=== PATIENT | female | born 1945 | race Two or more races ===

== ENCOUNTER 2016-09-03 05:16 | Inpatient (IN) | payer OTHER, MEDICARE ==
[~2016-09-03] VITALS: Ht 170.2 cm; Wt 121.1 kg
[2016-09-03] MEDS ORDERED: NEEDLELESS EST SET LARGE BORE 1 EA INFUS.SET MC ONE (07:55)
[2016-09-03] MEDS ORDERED: IV SET PRIMARY 1 EA INFUS.SET MC ONE (07:55)
[2016-09-03] MEDS ORDERED: IV LR 1000 ML 1,000 ML ONE (07:55)
[2016-09-03] MEDS ORDERED: SECONDARY IV SET 1 EA INFUS.SET MC ONE ×2 (07:55→17:27)
[2016-09-03] MEDS ORDERED: CEFAZOLIN SODIUM/DEXTROSE,ISO 50 ML IV ONE (07:55)
[2016-09-03] MEDS ORDERED: KETOROLAC TROMETHAMINE INJ 30 MG/ML VIAL ONE (08:10)
[2016-09-03] MEDS ORDERED: BACITRACIN 50000 UNITS/VIAL ONE (08:10)
[2016-09-03] MEDS ORDERED: BUPIVACAINE MPF 0.5% W/EPI INJ 30 ML VIAL ONE (08:10)
[2016-09-03] MEDS ORDERED: ROCURONIUM BROMIDE 50 MG/5 ML ONE (08:21)
[2016-09-03] MEDS ORDERED: FENTANYL PF 100MCG/2ML AMPUL ONE (08:21)
[2016-09-03] MEDS ORDERED: TRANEXAMIC ACID 3,000 MG in SODIUM CHLORIDE IRRIG SOLUTION 70 ML IR ONE (08:30)
[2016-09-03] MEDS ORDERED: HYDROMORPHONE 1 MG/1 ML DISP.SYRIN ONE (10:21)
[2016-09-03 11:30] VITALS: BP 120/63
[2016-09-03 12:00] VITALS: BP 120/63
[2016-09-03] MEDS ORDERED: ZOFRAN 4mg/2ML IV PRN (12:00)
[2016-09-03] MEDS ORDERED: TYLENOL 650 MG TABLET PO PRN (12:00)
[2016-09-03] MEDS ORDERED: COLACE 250 MG CAPSULE PO PRN (12:00)
[2016-09-03] MEDS ORDERED: SENOKOT 8.6 MG TABLET PO PRN (12:00)
[2016-09-03] MEDS ORDERED: IV LR 1000 ML 1,000 ML IV PRN (12:00)
[2016-09-03] MEDS ORDERED: HYDROCODONE/APAP 5/325MG 1 EACH TABLET PO PRN (12:00)
[2016-09-03] MEDS ORDERED: DULCOLAX 10 MG/SUPP.RECT RC PRN (12:00)
[2016-09-03] MEDS ORDERED: IV SET PRIMARY PUMP SET 1 EA INFUS.SET MC ONE (12:31)
[2016-09-03] MEDS ORDERED: HYDR-3205 PO (15:05)
[2016-09-03] MEDS ORDERED: RIVA10TA PO (15:05)
[2016-09-03] MEDS ORDERED: MELO-264 PO (15:05)
[2016-09-03] MEDS ORDERED: VALS160T24 PO (15:05)
[2016-09-03] MEDS ORDERED: ESCI10TA PO (15:05)
[2016-09-03] MEDS ORDERED: POTA10CA68 PO (15:05)
[2016-09-03] MEDS ORDERED: FURO40TA5 PO (15:12)
[2016-09-03] MEDS ORDERED: FLUT1DIS3 IH (15:12)
[2016-09-03] MEDS ORDERED: ERGO500047 PO (15:12)
[2016-09-03] MEDS ORDERED: TIOT18CA3 IH (15:12)
[2016-09-03] MEDS: HYDROMORPHONE 1 MG/1 ML DISP.SYRIN IV PRN (15:43)
[2016-09-03 16:00] VITALS: BP 106/56
[2016-09-03] MEDS: FLUTICASONE/SALMETEROL DISKUS IH SCH (17:27)
[2016-09-03] MEDS: ANCEF 1 G in IV D5W 50 ML IV SCH (17:27)
[2016-09-03] MEDS ORDERED: HYDROCODONE/APAP 10/325MG 1 EA TABLET PO ONE (17:45)
[2016-09-03] MEDS ORDERED: diphenhydrAMINE HCL 25 MG CAPSULE PO PRN (18:00)
[2016-09-03] MEDS ORDERED: MAG HYDROX/AL HYDROX/SIMETH 30 ML UDC PO PRN (18:00)
[2016-09-03] MEDS: IPRATROPIUM NEB FS 0.5 MG/2.5 ML AMPUL.NEB NEB SCH (19:56)
[2016-09-03] MEDS: ALBUTEROL FS 2.5 MG/0.5 ML VIAL.NEB NEB SCH (19:56)
[2016-09-03 20:00] VITALS: BP 110/49
[2016-09-03] MEDS: ESCITALOPRAM OXALATE (10 MG) 10 MG TABLET PO SCH (21:50)
[2016-09-03] MEDS: PANTOPRAZOLE 40 MG TABLET.DR PO SCH (21:50)
[2016-09-03] MEDS ORDERED: AMBIEN 5 MG TABLET PO PRN (22:00)
[2016-09-04] MEDS: ANCEF 1 G in IV D5W 50 ML IV SCH (01:11)
[2016-09-04] MEDS: ALBUTEROL FS 2.5 MG/0.5 ML VIAL.NEB NEB SCH ×2 (01:33→20:12)
[2016-09-04] MEDS: IPRATROPIUM NEB FS 0.5 MG/2.5 ML AMPUL.NEB NEB SCH ×2 (01:33→20:12)
[2016-09-04] MEDS ORDERED: HYDROCODONE/APAP 10/325MG 1 EA TABLET PO ONE (06:00)
[2016-09-04 06:41] LABS: HEMOGLOBIN 10.5 g/dL (11.5-14.8)
[2016-09-04 07:07] LABS: POTASSIUM 4.8 mmol/L (3.5-5.1)
[2016-09-04 07:08] LABS: CALCIUM, SERUM 8.3 mg/dL (8.5-10.1); CREATININE 2.4 mg/dL (0.6-1.3)
[2016-09-04 07:16] VITALS: BP 115/49
[2016-09-04 08:00] VITALS: BP 100/47
[2016-09-04] MEDS: VALSARTAN 80 MG TABLET PO SCH (08:55)
[2016-09-04] MEDS: DOCUSATE SODIUM 100 MG CAPSULE PO SCH ×2 (08:55→16:58)
[2016-09-04] MEDS: RIVAROXABAN 10 MG TABLET PO SCH ×2 (08:57→16:58)
[2016-09-04] MEDS: FLUTICASONE/SALMETEROL DISKUS IH SCH ×2 (08:58→17:01)
[2016-09-04] MEDS ORDERED: MELOXICAM 7.5 MG TABLET PO SCH (09:00)
[2016-09-04] MEDS ORDERED: FUROSEMIDE 40 MG TABLET PO SCH (09:00)
[2016-09-04] MEDS: IV NS 0.9% 1,000 ML IV PRN (10:30)
[2016-09-04] MEDS: HYDROMORPHONE 1 MG/1 ML DISP.SYRIN IV PRN ×2 (10:31→13:15)
[2016-09-04] MEDS: HYDROCODONE/APAP 10/325MG 1 EA TABLET PO PRN ×3 (11:58→22:59)
[2016-09-04 15:06] VITALS: BP 102/55
[2016-09-04 15:22] LABS: IRON, SERUM 53 ug/dl (50-175); PERCENT SATURATION 18 % (14-33); TOTAL IRON BINDING CAPACITY 298 ug/dl (250-450)
[2016-09-04 15:34] LABS: KETONES,URINE TRACE (NEGATIVE); LEUKOCYTE ESTERASE ,URINE NEGATIVE (NEGATIVE)
[2016-09-04 15:52] LABS: ADD UA MICROSCOPIC YES
[2016-09-04 16:00] VITALS: BP 110/48
[2016-09-04 16:09] LABS: RBC,URINE 20-25 /HPF (0-2)
[2016-09-04 16:10] LABS: ADD URINE CULTURE NO; WBC,URINE 0-2 /HPF (0-3)
[2016-09-04 16:12] LABS: URINE TOTAL PROTEIN 40.9 mg/dL (0-11.9)
[2016-09-04 20:00] VITALS: BP_SYST 115; BP_DIAS 49; BP_DIAS 79
[2016-09-04] MEDS: PANTOPRAZOLE 40 MG TABLET.DR PO SCH (21:52)
[2016-09-04] MEDS: ESCITALOPRAM OXALATE (10 MG) 10 MG TABLET PO SCH (21:52)
[2016-09-05] MEDS: IV NS 0.9% 1,000 ML IV PRN ×2 (01:58→16:11)
[2016-09-05] MEDS: ALBUTEROL FS 2.5 MG/0.5 ML VIAL.NEB NEB SCH ×2 (02:16→08:20)
[2016-09-05] MEDS: IPRATROPIUM NEB FS 0.5 MG/2.5 ML AMPUL.NEB NEB SCH ×4 (02:16→19:19)
[2016-09-05 07:53] LABS: BASOPHILS % (AUTO) 0.2 % (0.0-2.0); DIFF TOTAL % 100 %; EOSINOPHILS # (AUTO) 0.1 /CMM (0.0-0.7); EOSINOPHILS % (AUTO) 0.5 % (0.0-6.0); HEMATOCRIT 31 % (33-45); HEMOGLOBIN 10.1 g/dL (11.5-14.8); LYMPHOCYTES # (AUTO) 1.4 /CMM (0.8-4.8); LYMPHOCYTES % (AUTO) 11.5 % (20.0-44.0); MEAN CORPUSCULAR HEMOGLOBIN 30 PG (26.0-33.0); MEAN CORPUSCULAR HGB CONC 32 g/dl (31.0-36.0); MEAN CORPUSCULAR VOLUME 91 fL (82-100); MONOCYTES # (AUTO) 1.3 /CMM (0.1-1.30); MONOCYTES % (AUTO) 10.8 % (2.0-12.0); NEUTROPHILS # (AUTO) 9.3 /CMM (1.8-8.9); PLATELET COUNT (AUTO) 223 /CMM (150-450); RED BLOOD CELL COUNT(AUTO) 3.42 MIL/uL (4.0-5.2); WHITE BLOOD COUNT (AUTO) 12.1 K/uL (4.3-11.0)
[2016-09-05 07:58] LABS: RETICULOCYTE COUNT 1.1 % (0.6-2.5)
[2016-09-05 08:00] VITALS: BP 122/53
[2016-09-05 08:06] LABS: ALBUMIN 2.9 g/dL (3.4-5.0); BILIRUBIN,TOTAL 0.3 mg/dL (0.2-1.0); CALCIUM, SERUM 8.2 mg/dL (8.5-10.1); CREATININE 3.3 mg/dL (0.6-1.3); POTASSIUM 4.6 mmol/L (3.5-5.1); TOTAL PROTEIN, SERUM 6.5 g/dL (6.4-8.2)
[2016-09-05 08:18] LABS: THYROID STIMULATING HORMONE 1.488 uIU/mL (0.358-3.74)
[2016-09-05] MEDS ORDERED: ERGOCALCIFEROL (VITAMIN D 2) 50,000 UNIT CAPSULE PO SCH (09:00)
[2016-09-05] MEDS: VALSARTAN 80 MG TABLET PO SCH (09:00)
[2016-09-05] MEDS: FLUTICASONE/SALMETEROL DISKUS IH SCH ×2 (09:44→16:01)
[2016-09-05] MEDS: HYDROCODONE/APAP 10/325MG 1 EA TABLET PO PRN (09:45)
[2016-09-05] MEDS: DOCUSATE SODIUM 100 MG CAPSULE PO SCH ×2 (09:46→16:00)
[2016-09-05] MEDS: ALBUTEROL FS 2.5 MG/3 ML VIAL.NEB NEB SCH ×2 (13:47→19:19)
[2016-09-05] MEDS ORDERED: IV SET PRIMARY PUMP SET 1 EA INFUS.SET MC ONE (15:56)
[2016-09-05 16:00] VITALS: BP 115/52
[2016-09-05] MEDS: RIVAROXABAN 10 MG TABLET PO SCH (16:11)
[2016-09-05 20:00] VITALS: BP 117/59
[2016-09-05] MEDS: PANTOPRAZOLE 40 MG TABLET.DR PO SCH (22:10)
[2016-09-05] MEDS: ESCITALOPRAM OXALATE (10 MG) 10 MG TABLET PO SCH (22:10)
[2016-09-06] MEDS: ALBUTEROL FS 2.5 MG/3 ML VIAL.NEB NEB SCH ×4 (01:40→19:52)
[2016-09-06] MEDS: IPRATROPIUM NEB FS 0.5 MG/2.5 ML AMPUL.NEB NEB SCH ×4 (01:40→19:52)
[2016-09-06 07:23] LABS: BASOPHILS # (AUTO) 0.1 /CMM (0.0-0.2); BASOPHILS % (AUTO) 0.5 % (0.0-2.0); DIFF TOTAL % 100 %; EOSINOPHILS # (AUTO) 0.1 /CMM (0.0-0.7); EOSINOPHILS % (AUTO) 1.4 % (0.0-6.0); HEMATOCRIT 29 % (33-45); HEMOGLOBIN 9.6 g/dL (11.5-14.8); LYMPHOCYTES # (AUTO) 1.5 /CMM (0.8-4.8); LYMPHOCYTES % (AUTO) 13.5 % (20.0-44.0); MEAN CORPUSCULAR HEMOGLOBIN 30 PG (26.0-33.0); MEAN CORPUSCULAR HGB CONC 33 g/dl (31.0-36.0); MEAN CORPUSCULAR VOLUME 91 fL (82-100); MONOCYTES # (AUTO) 1.3 /CMM (0.1-1.30); MONOCYTES % (AUTO) 12.2 % (2.0-12.0); NEUTROPHILS # (AUTO) 7.9 /CMM (1.8-8.9); NEUTROPHILS % (AUTO) 72.4 % (43.0-81.0); PLATELET COUNT (AUTO) 239 /CMM (150-450)
[2016-09-06 07:44] LABS: CALCIUM, SERUM 8.5 mg/dL (8.5-10.1); CREATININE 1.9 mg/dL (0.6-1.3); POTASSIUM 5.2 mmol/L (3.5-5.1)
[2016-09-06 08:00] VITALS: BP 129/59
[2016-09-06] MEDS: DOCUSATE SODIUM 100 MG CAPSULE PO SCH ×2 (08:41→16:26)
[2016-09-06] MEDS: FLUTICASONE/SALMETEROL DISKUS IH SCH ×2 (08:42→16:26)
[2016-09-06] MEDS: CYANOCOBALAMIN 500 MCG TABLET PO SCH (08:42)
[2016-09-06] MEDS: VALSARTAN 80 MG TABLET PO SCH (08:42)
[2016-09-06] MEDS: IV NS 0.9% 1,000 ML IV PRN ×2 (08:49→21:36)
[2016-09-06 12:10] LABS: PTH, INTACT 90 pg/mL (15-65)
[2016-09-06] MEDS: LACTULOSE 10 G/15 ML UDC (PYXIS) PO SCH ×3 (13:47→21:35)
[2016-09-06 16:00] VITALS: BP 126/64
[2016-09-06] MEDS: RIVAROXABAN 10 MG TABLET PO SCH (16:26)
[2016-09-06 20:00] VITALS: BP 120/49
[2016-09-06 21:01] LABS: KETONES,URINE NEGATIVE (NEGATIVE); LEUKOCYTE ESTERASE ,URINE TRACE (NEGATIVE)
[2016-09-06 21:15] LABS: CREATININE, URINE 90.1 MG/DL (30.0-125.0); URINE TOTAL PROTEIN 29.7 mg/dL (0-11.9)
[2016-09-06 21:25] LABS: ADD UA MICROSCOPIC YES
[2016-09-06 21:27] LABS: ADD URINE CULTURE NO
[2016-09-06] MEDS: PANTOPRAZOLE 40 MG TABLET.DR PO SCH (21:35)
[2016-09-06] MEDS: ESCITALOPRAM OXALATE (10 MG) 10 MG TABLET PO SCH (21:35)
[2016-09-06 22:00] VITALS: BP 120/49
[2016-09-07] MEDS: IPRATROPIUM NEB FS 0.5 MG/2.5 ML AMPUL.NEB NEB SCH ×4 (00:56→20:06)
[2016-09-07] MEDS: ALBUTEROL FS 2.5 MG/3 ML VIAL.NEB NEB SCH ×4 (00:56→20:06)
[2016-09-07] MEDS: LACTULOSE 10 G/15 ML UDC (PYXIS) PO SCH ×5 (01:26→16:38)
[2016-09-07 08:00] VITALS: BP 119/62
[2016-09-07 08:28] LABS: CALCIUM, SERUM 8.7 mg/dL (8.5-10.1); CREATININE 1.4 mg/dL (0.6-1.3); POTASSIUM 5.3 mmol/L (3.5-5.1)
[2016-09-07] MEDS: FLUTICASONE/SALMETEROL DISKUS IH SCH ×2 (08:54→16:35)
[2016-09-07] MEDS: DOCUSATE SODIUM 100 MG CAPSULE PO SCH ×2 (08:54→16:39)
[2016-09-07] MEDS: AMLODIPINE BESYLATE 10 MG TABLET PO SCH (08:55)
[2016-09-07] MEDS: CYANOCOBALAMIN 500 MCG TABLET PO SCH (08:55)
[2016-09-07] MEDS ORDERED: SODIUM POLYSTYRENE SULFONATE 15 G/60 ML BOTTLE PO ONE (12:00)
[2016-09-07] MEDS: IV NS 0.9% 1,000 ML IV PRN (12:42)
[2016-09-07 16:00] VITALS: BP 119/54
[2016-09-07] MEDS: RIVAROXABAN 10 MG TABLET PO SCH (16:38)
[2016-09-07 17:35] VITALS: BP 119/54
[2016-09-07 20:00] VITALS: BP 135/65
[2016-09-07] MEDS: PANTOPRAZOLE 40 MG TABLET.DR PO SCH (22:26)
[2016-09-07] MEDS: ESCITALOPRAM OXALATE (10 MG) 10 MG TABLET PO SCH (22:26)
[2016-09-08] MEDS: IV NS 0.9% 1,000 ML IV PRN (00:46)
[2016-09-08] MEDS: ALBUTEROL FS 2.5 MG/3 ML VIAL.NEB NEB SCH ×3 (01:25→13:12)
[2016-09-08] MEDS: IPRATROPIUM NEB FS 0.5 MG/2.5 ML AMPUL.NEB NEB SCH ×3 (01:25→13:12)
[2016-09-08 07:44] LABS: CALCIUM, SERUM 8.9 mg/dL (8.5-10.1); CREATININE 1.1 mg/dL (0.6-1.3); POTASSIUM 4.8 mmol/L (3.5-5.1)
[2016-09-08 08:00] VITALS: BP 141/76
[2016-09-08] MEDS: FLUTICASONE/SALMETEROL DISKUS IH SCH ×2 (08:03→17:11)
[2016-09-08] MEDS: AMLODIPINE BESYLATE 10 MG TABLET PO SCH (08:04)
[2016-09-08] MEDS: CYANOCOBALAMIN 500 MCG TABLET PO SCH (08:04)
[2016-09-08] MEDS: DOCUSATE SODIUM 100 MG CAPSULE PO SCH ×2 (08:04→17:11)
[2016-09-08] MEDS ORDERED: CYAN500T4 PO (10:15)
[2016-09-08] MEDS ORDERED: HYDR-3658 PO (10:15)
[2016-09-08] MEDS ORDERED: AMLO10TA2 PO (10:15)
[2016-09-08] MEDS ORDERED: DOCU-25 PO (10:15)
[2016-09-08] MEDS ORDERED: Z GUARD REMEDY 2 OZ OINT TP PRN (14:00)
[2016-09-08 16:00] VITALS: BP 135/69
[2016-09-08] MEDS: RIVAROXABAN 10 MG TABLET PO SCH (17:13)
== END 2016-09-08 18:00 | DRG 469 ==
LOC: DS 05:16 → MED 11:44
PROVIDERS: ADMIT Specialist; ATTEND Student in an Organized Health Care Education/Training Program
PROC: 0SR901Z Replacement of Right Hip Joint with Metal Synthetic Substitute, Open Approach (ICD-10-PCS; principal; 2016-09-03 09:10)
DX: M16.11 Unilateral primary osteoarthritis, right hip (principal); E43 Unspecified severe protein-calorie malnutrition; N17.0 Acute kidney failure with tubular necrosis; J44.9 Chronic obstructive pulmonary disease, unspecified; I10 Essential (primary) hypertension; E55.9 Vitamin D deficiency, unspecified; F41.9 Anxiety disorder, unspecified; F32.9 Major depressive disorder, single episode, unspecified; E66.01 Morbid (severe) obesity due to excess calories; Z87.891 Personal history of nicotine dependence; K21.9 Gastro-esophageal reflux disease without esophagitis; G89.4 Chronic pain syndrome; E87.5 Hyperkalemia; D64.9 Anemia, unspecified; D72.829 Elevated white blood cell count, unspecified; J45.909 Unspecified asthma, uncomplicated; R33.9 Retention of urine, unspecified
CPT/HCPCS: 36415; 76770-TC; 80048-TC; 80053-TC; 81000-TC; 82550-TC; 82553-TC; 82570-TC; 82728-TC; 82746; 83540-TC; 83735-TC; 83970; 84100-TC; 84155; 84155-TC; 84165; 84300-TC; 84439-TC; 84443-TC; 84484-TC; 85025-TC; 85027-TC; 85045-TC; 86850-TC; 86921-TC; 87081-TC; 88305-TC; 88311-TC; 94799-TC; 97001-TC; 97003-TC; 97110-TC; 97116-TC; 97530-TC; A4217; A6209; A6253; A6402; J0690; J1170; J1885; J2405; J3010; J3490; J7030; J7060; J7120